=== PATIENT | female | born 1955 | race Caucasian/White ===

== ENCOUNTER 2020-07-17 22:47 | Emergency (ER) | payer BC, SELFPAY ==
[2020-07-17 23:00] VITALS: BP 151/86; PULSE 69; RESP 18; TEMP 36.4; O2SAT 97
[2020-07-17] MEDS: MECLIZINE HCL 25 MG TABLET PO (23:29)
--- NOTE | 2020-07-17 23:38 | ED.DIZZY ---
HPI - Dizziness General Chief Complaint: Dizziness Stated Complaint: dizzy, sore throat, nausea Time Seen by Provider: 07/17/20 23:15 Source: patient and family Mode of arrival: ambulatory Limitations: no limitations History of Present Illness HPI Narrative: This nice woman has a known history of vertigo, which lasts a few seconds, and is associated with nausea. SHe has been treated multiple times for this. This has never been associated with syncope or near syncope. She has had repeated episodes of sheat sounds like benign positional vertigo. Vertigo symptoms she describes as intermittent, severe, and ongoing. This is precipitated by turning her head to the right, and is associated with nausea. Laying still helps relieve the symptoms. Symptoms started severely tonight at about 9pm. Nothing at home helped. no modifying factors. known history of benign positional vertigo. she has never been taught [employer]. MD elicited complaint: vertigo Pertinent past history: BPPV Onset (ago): hour(s) (onset at about 9pm) Timing: sudden onset Severity: severe Description: sense of movement and room spinning History of similar symptoms: Yes Exacerbating factors: other (moving head to right) Relieving factors: remaining still Associated symptoms: nausea Related Data Allergies Allergy/AdvReac Type Severity Reaction Status Date / Time codeine Allergy Dizziness Verified 07/17/20 23:02 Review of Systems Constitutional: Constitutional: Reports no additional constitutional complaints Eyes: Eyes: Reports no additional eye complaints ENT: Reports system reviewed and no additional complaints, except as documented Cardiovascular: Cardiovascular: Reports no additional cardiovascular complaints Respiratory: Respiratory: Reports no additional respiratory complaints Gastrointestinal: Gastrointestinal: Reports no additional gastrointestinal complaints Genitourinary: Genitourinary: Reports no additional female genitourinary complaints Musculoskeletal: Musculoskeletal: Reports no additional musculoskeletal complaints Integumentary/Breasts: Skin/Breast: Reports system reviewed and no additional complaints, except as docu Neurologic: Reports system reviewed and no additional complaints, except as documented Psychiatric: Psychiatric: Reports no additional psychiatric complaints Endocrine: Endocrine: Reports no additional endocrine complaints Hematologic/Lymphatic: Hematologic/Lymphatic: Reports no additional hematologic/lymphatic complaints Allergic/Immunologic: Allergic/Immunologic: Reports no additional allergic/immunologic complaints PMFSH Past Medical History Medical History (Updated 07/18/20 @ 00:15 by Olivier Linares MD) 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 Surgical History Surgical History (Updated 07/18/20 @ 00:04 by Olivier Linares MD) No significant past surgical history Family History Family History (Updated 07/18/20 @ 00:05 by Olivier Linares MD) Mother Atrial fibrillation CAD (coronary artery disease) Hypertension Father No significant medical problems Social History Social History (Updated 07/18/20 @ 00:06 by Olivier Linares MD) Smoking status: Never smoker Alcohol intake: current Alcohol use details: rarely one beer Substance use: never Gender identity (if verbalized by the patient): Female Sexual Orientation (if Verbalized by the Patient): Straight or Heterosexual Exam Const: General: alert Orientation/consciousness: patient oriented x3 Other: mildly upset secondary to vertigo HENMT: Head: normal to inspection General nose exam: Normal external nose present Face and sinus: normal facial exam Mouth: Yes Normal oral and palatal mucosa present Other: pharynx with mild erythema, no exudates Eyes: Conjunctivae: conjunctivae normal Neck: Neck: normal visual inspection and no lymphadenopathy Chest: Chest palpation & inspection: normal inspection of the
[2020-07-17 23:51] LABS: Basophils Absolute Auto 0.02 K/mm3 (0.00-0.10); Basophils Percent Auto 0.3 % (0.0-1.0); Eosinophils Absolute Auto 0.14 K/mm3 (0.02-0.50); Hematocrit 37.1 % (35.0-49.0); Hemoglobin 12.7 g/dL (12.0-15.0); Immature Granulocyte Absolute 0.02 K/mm3 (0.00-0.00); Immature Granulocyte Percent A 0.3 % (0.0-0.0); Lymphocytes Absolute Auto 1.87 K/mm3 (1.10-4.50); Lymphocytes Percent Auto 26.7 % (18.0-42.0); Mean Corpuscular HGB Conc 34.2 g/dL (32.0-36.0); Mean Corpuscular Hemoglobin 30.5 pg (27.0-31.0); Mean Platelet Volume 9.8 fl (9.2-11.8); Monocytes Percent Auto 7.1 % (2.0-11.0); Neutrophils Absolute Auto 4.5 K/mm3 (1.7-7.2); Neutrophils Percent Auto 63.6 % (50.0-70.0); Platelet Count Result 235 K/mm3 (150-420); Red Blood Count 4.17 M/mm3 (4.20-5.40); Red Cell Distribution Width 12.3 % (11.6-14.4)
[2020-07-18] LABS: Alanine Aminotransferase 32 U/L (14-59); Albumin Level 3.7 g/dL (3.4-5.0); Alkaline Phosphatase 106 U/L (46-116); Anion Gap 10 mmol/L (8-16); Aspartate Amino Transferase 18 U/L (15-37); Bilirubin,Total 0.5 mg/dL (0.00-1.00); Blood Urea Nitrogen 17 mg/dL (7-18); Calcium 9.2 mg/dL (8.5-10.1); Carbon Dioxide 26 mmol/L (21-32); Chloride 103 mmol/L (98-108); Estimated CRCL calculation 60 ml/min; Estimated Glomerular Filt Rate > 60; Glucose 113 mg/dL (70-99); Osmolality Calculated 290 mOsm/kg (285-295); Potassium 3.6 mmol/L (3.5-5.1); Sodium 139 mmol/L (136-145)
[2020-07-18 00:15] VITALS: BP 145/79; PULSE 78; RESP 20; TEMP 36.4; O2SAT 98
== END 2020-07-18 00:22 | disposition home or self-care (01) ==
PROVIDERS: Emergency Provider Emergency Medicine
DX: H81.10 Benign paroxysmal vertigo, unspecified ear (principal)
CPT/HCPCS: 80053; 85025; 87081; 87880; 99283; A9270

== ENCOUNTER 2021-01-16 08:05 | Outpatient (CLI) | payer BC, SELFPAY ==
[2021-01-16 08:50] LABS: SARS-CoV-2 Ag Negative (Negative)
[2021-01-16 09:30] LABS: SARS-CoV-2 RNA PCR Negative (Negative)
== END 2021-01-16 08:06 | disposition home or self-care (01) ==
LOC: CHSLAB 08:13
PROVIDERS: PCP Family Medicine; Visit Provider Physician Assistant
DX: Z20.822 Contact with and (suspected) exposure to COVID-19 (principal)
CPT/HCPCS: 87426; C9803; U0003; U0005

== ENCOUNTER 2021-06-20 14:43 | Outpatient (CLI) | payer OTHER, SELFPAY ==
--- NOTE | ~2021-06-20 | XR_ITS ---
EXAMINATION: XR knee LT 3V DATE: 06/20/2021 15:12 INDICATION: Left knee injury and pain. TECHNIQUE: 3 views of left knee were obtained. COMPARISON: None. FINDINGS: Bone alignment is normal. No fracture. There is mild tricompartmental osteoarthritis charac terized by tiny osteophytes. No joint space narrowing. There is a small knee joint effusion. IMPRESSION: 1. Mild left knee osteoarthritis. 2. Small left knee joint effusion. Reviewed, dictated and finalized at location B.
== END 2021-06-20 14:44 | disposition home or self-care (01) ==
PROVIDERS: PCP Physician Assistant
DX: S89.92XA Unspecified injury of left lower leg, initial encounter (principal)
CPT/HCPCS: 73562

== ENCOUNTER 2021-07-09 07:13 | Outpatient (CLI) | payer OTHER, SELFPAY ==
--- NOTE | ~2021-07-09 | MR_ITS ---
EXAMINATION: MR knee LT wo con DATE: 07/09/2021 08:17 INDICATION: Left knee pain post injury 3 weeks prior with palpable pop limited range of motion. TECHNIQUE: Magnetic resonance imaging (MRI) of the left knee was performed without intravenous contra st. Sequences included coronal PD-weighted FSE, coronal PD-weighted FS FSE, sagittal T2-weighted FSE , sagittal PD-weighted FS FSE and axial PD weighted fat saturated FSE. COMPARISON: None. FINDINGS: Medial compartment: Complex tear at the posterior horn of the medial meniscus with a small longitudinal horizontal tear p frank extending to the intra-articular surface at the inner third of the posterior horn as well as a f ull-thickness radial tear plane at the lateral aspect of the posterior horn near the posterior root. Diffuse mild partial thickness cartilage loss with mild chondral surface irregularity along both the medial tibial plateau and weightbearing medial femoral condyle. There is tiny focus of edema-like mar row signal change underlying a small region of subtle cortical irregularity at the anterior weightbea ring medial femoral condyle. Lateral compartment: Lateral meniscus is normal. Articular cartilage is normal. Patellofemoral compartment: Deep chondral ulceration with small region of mild subarticular edema-like marrow signal change at th e medial patellar facet. Additional deep chondral ulceration without degenerative subchondral changes at the apical ridge. Mild partial-thickness cartilage loss at the lateral patellar facet with mild e marian underlying a small region of chondral fissuring at the inferior margin of the lateral facet. Par tial-thickness chondral ulceration without degenerative subchondral changes along the medial trochlea . Ligaments and tendons: Anterior and posterior cruciate ligaments are normal. The medial collateral ligament and fibular alec ateral ligament complex are normal. The extensor mechanism is normal. The visualized medial and later al hamstring tendons as well as the iliotibial band are normal. Fluid: Small left knee joint effusion. No loose osteochondral bodies identified. Small Dias's cyst. Mild pr epatellar edema without discrete bursal fluid collection. Osseous/other: There is likely degenerative cystic change along the tibial side of the proximal tibiofibular articul ation. Bone alignment is normal. No fracture or pathologic marrow replacing process. IMPRESSION: 1. Complex tear including full-thickness radial component at the posterior horn of the medial meniscu s. 2. Mild to moderate patellofemoral and mild medial compartment osteoarthritis, both with regions of m oderate and high-grade chondromalacia as detailed above. 3. Small left knee joint effusion and small Dias's cyst. Reviewed, dictated and finalized at location A. IMPRESSION: 1. Complex tear including full-thickness radial component at the posterior horn of the medial meniscus. 2. Mild to moderate patellofemoral and mild medial compartment osteoarthritis, both with regions of moderate and high-grade chondromalacia as detailed above. 3. Small left knee joint effusion and small Dias's cyst.
== END 2021-07-09 07:14 | disposition home or self-care (01) ==
LOC: CHSIMG 07:15
PROVIDERS: PCP Family Medicine
DX: M25.562 Pain in left knee (principal)
CPT/HCPCS: 73721

== ENCOUNTER 2022-07-06 14:30 | Emergency (ER) | payer BC, SELFPAY ==
--- NOTE | 2022-07-06 14:43 | ED.GENADULT ---
HPI - General Adult General Chief complaint: Wound/Laceration Stated complaint: L leg cut Time Seen by Provider: 07/06/22 14:42 History of Present Illness HPI narrative: Micheline is a 67F with a PMH of vertigo that presented to the ED with a laceration in her right lower extremity that occurred when mowing the lawn just before coming. No other injuries reported. 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 Surgical History Surgical History (Updated 07/18/20 @ 00:04 by Olivier Linares MD) No significant past surgical history Family History Family History (Updated 07/18/20 @ 00:05 by Olivier Linares MD) Mother Atrial fibrillation CAD (coronary artery disease) Hypertension Father No significant medical problems Social History Social History (Updated 07/18/20 @ 00:06 by Olivier Linares MD) Smoking status: Never smoker Alcohol intake: current Alcohol use details: rarely one beer Substance use: never Gender identity (if verbalized by the patient): Female Sexual Orientation (if Verbalized by the Patient): Straight or Heterosexual Exam Const: General: healthy appearing and no acute distress Nutritional Appearance: well nourished HENMT: Head: normal to inspection Ears: external ears normal Eyes: Conjunctivae: conjunctivae normal Pupils: Equal, round and reactive pupils present Neck: Neck: normal visual inspection Chest: Chest palpation & inspection: normal inspection of the chest Resp: Effort & Inspection: normal respiratory effort Other: No respiratory distress Cardio: Rate: regular rate Skin: General skin exam: normal color Rashes: no rashes Neuro: General: patient oriented x3 and moves all extremities Extrem: Other: 2cm linear shallow laceration on the LLE Psych: Mental Status: mental status grossly normal Course Vital Signs Vital signs: Vital Signs Temperature 98.5 F 07/06/22 14:48 Pulse Rate 90 07/06/22 14:48 Respiratory Rate 18 07/06/22 14:48 Blood Pressure 145/97 H 07/06/22 14:48 Pulse Oximetry 97 07/06/22 14:48 Oxygen Delivery Room Air 07/06/22 14:48 Temperature 98.5 F 07/06/22 14:48 Pulse Rate 90 07/06/22 14:48 Respiratory Rate 18 07/06/22 14:48 Blood Pressure 145/97 H 07/06/22 14:48 Pulse Oximetry 97 07/06/22 14:48 Oxygen Delivery Room Air 07/06/22 14:48 Procedures Laceration Laceration 1: Date: 07/06/22 Time: 15:14 Site: lower extremity (right lower extremity ) Side (If applicable): left and right Size (cm): 2 Depth: simple, single layer Local Anesthetic: lidocaine 1% and with epi Amount of anesthesia used (mL): 1 Pre-repair: irrigated and irrigated extensively ====== Skin Level ====== Skin layer closed with: nylon Size (cm): 4-0 Number of sutures: 3 Technique: simple, interrupted ====== Subcutaneous Layer ====== ====== Muscle Layer ====== ====== Tendon Layer ====== Medical Decision Making Vital Signs Vital Signs: Vital Signs Temperature 98.5 F 07/06/22 14:48 Pulse Rate 90 07/06/22 14:48 Respiratory Rate 18 07/06/22 14:48 Blood Pressure 145/97 H 07/06/22 14:48 Pulse Oximetry 97 07/06/22 14:48 Oxygen Delivery Room Air 07/06/22 14:48 Temperature 98.5 F 07/06/22 14:48 Pulse Rate 90 07/06/22 14:48 Respiratory Rate 18 07/06/22 14:48 Blood Pressure 145/97 H 07/06/22 14:48 Pulse Oximetry 97 07/06/22 14:48 Oxygen Delivery Room Air 07/06/22 14:48 Discharge Plan Discharge Clinical Impression:
[2022-07-06 14:48] VITALS: BP 145/97; PULSE 90; RESP 18; TEMP 36.9; O2SAT 97
--- NOTE | 2022-07-06 15:22 | PC.NURSE ---
Mistakenly charted wound was on right, but was on left instead.
--- NOTE | 2022-07-06 15:26 | PC.NURSE ---
Lidocaine given by provider.
[2022-07-06] MEDS: LIDO 1%/EPINEPHRINE 1:100,000 20 ML VIAL INFILTRATE (15:29)
== END 2022-07-06 15:30 | disposition home or self-care (01) ==
LOC: CHSED 15:28
PROVIDERS: Emergency Provider Family Medicine; PCP Physician Assistant
DX: S81.811A Laceration without foreign body, right lower leg, initial encounter (principal); W45.8XXA Other foreign body or object entering through skin, initial encounter
CPT/HCPCS: 12001; 99282